=== PATIENT | female | born 2000 | race African-American/Black ===

== ENCOUNTER 2020-01-23 11:34 | Inpatient (IN) | payer MEDICAID ==
[~2020-01-23] VITALS: Ht 165.1 cm; Wt 57.0 kg
[2020-01-23 12:33] LABS: BASOPHILS 0.1 % (0-2); EOSINOPHILS 0.2 % (0-7); HEMATOCRIT 40.4 % (36.0-48.0); HEMOGLOBIN 12.4 g/dL (12-16); IMMATURE GRANULOCYTES 0.3 % (0-5); LYMPHOCYTES 5.5 % (15-50); MCH 28.5 pg (26.0-34.0); MCHC 30.7 g/dL (31.0-37.0); MCV 92.9 fL (80.0-100.0); MEAN PLATELET VOLUME 8.7 fL (7.4-10.4); MONOCYTES 5.5 % (2-11); NEUTROPHILS 88.4 % (40-80); PLATELET COUNT 267 10x3/uL (130-400); RBC 4.35 10x6/uL (4.00-5.40); RDW 17.3 % (11.5-14.5); WBC 13.6 10x3/uL (4.8-10.8)
[2020-01-23 13:08] LABS: ALKALINE PHOSPHATASE 51 U/L (30-120); ALT (SGPT) 12 U/L (10-68); BILIRUBIN - TOTAL 0.22 mg/dL (0.2-1.3); CALC OSMOLALITY 306 mosm/kg (275-300); CHLORIDE - SERUM 103 mmol/L (98-107); CKMB 7.7 U/L (0.0-3.6); CREATINE KINASE 171 UL (21-215); CREATININE - SERUM 7.8 mg/dL (0.6-1.3); GLUCOSE 92 mg/dL (74-106); POTASSIUM - SERUM 4.6 mmol/L (3.5-5.1); PRO BNP 24502 pg/mL (0-125); PROTEIN - SERUM 7.4 g/dL (6.4-8.2); SODIUM 138 mmol/L (136-145); UREA NITROGEN 98 mg/dL (7-18); eGFR NON AFRICAN AMERICAN 7 mL/min (90-120)
[2020-01-23 13:17] LABS: CALCIUM 6.6 mg/dL (8.5-10.1); TROPONIN-I 0.198 ng/mL (0.000-0.060)
[2020-01-23] MEDS ORDERED: MULTI-DAY VITAM1 TAB PO (13:18)
[2020-01-23] MEDS ORDERED: NORVASC5 MG PO (13:18)
[2020-01-23] MEDS ORDERED: OMEPRAZOLE20 M1 PO (13:18)
[2020-01-23] MEDS ORDERED: LISINOPRIL10 MG PO (13:18)
[2020-01-23] MEDS ORDERED: STERAPRED 5MG 125 MG PO (13:18)
--- NOTE | 2020-01-23 13:18 | NUR ---
CRITICAL LAB: CALCIUM 6.6 AND TROPONIN 0.198 NICOLETTE BELTRÁN NOTIFIED
[2020-01-23] MEDS ORDERED: TUMS X-STR300 MG PO (13:19)
[2020-01-23] MEDS ORDERED: KENALOG 0.1 % 115 GM TOPICAL (13:19)
[2020-01-23 13:44] VITALS: BP 147/98
--- NOTE | 2020-01-23 13:44 | NUR ---
ATTEMPTED IV X 3 BY [address] DEGROOT NOTIFIED AND REPORTS NO NEED FOR IV AT THIS TIME SEND PT TO DIALYSIS AND 3D ARTIST CAN DRAW BLOOD AND IF NEEDED USE DIALYSIS PORT.
--- NOTE | 2020-01-23 13:51 | NUR ---
TO DIALYSIS VIA , CONDITION STABLE
[2020-01-23 15:29] LABS: APTT 40.6 SECONDS (22.8-39.4); INR 2.15 (0.85-1.17); PROTIME 23.7 SECONDS (11.6-15.0)
[2020-01-23 16:22] VITALS: BP 146/100
--- NOTE | 2020-01-23 16:23 | NUR ---
PT RTND TO ER #T4. PER OSEAS, NUTRITIONIST [facility], PTS DIALYSIS CATHETER DID NOT WORK/UNABLE TO DIALYSIS. DR LIU IN DIALYSIS AND ORDERED CATHLON. CATHLON PLACED BY OSEAS @ APPROX 1500 AND IS STILL DWELLING.
--- NOTE | 2020-01-23 16:35 | NUR ---
DR KIMBERLEY OSEGUERA
--- NOTE | 2020-01-23 16:56 | NUR ---
SPOKE WITH DR CARBAJAL. REPORTS SHE ASSESSED PT IN DIALYSIS. ORDERED TO ATTEMPT IV VIA US AND IF ABLE TO GET IV ACCESS CHANGE LASIX FROM PO TO IV
--- NOTE | 2020-01-23 17:15 | NUR ---
US MACHINE UNAVAILABLE. LASIX ADMIN PO AT THIS TIME
[2020-01-23 18:00] VITALS: BP 137/90
[2020-01-23 18:17] LABS: COMPLEMENT C4 28.2 mg/dL (17.4-52.2)
--- NOTE | 2020-01-23 18:49 | NUR ---
IV PLACED VIA US RAC #20 GA, GOOD BLOOD RTN AND FLUSHES EASILY
[2020-01-23 19:25] VITALS: BP 138/86
--- NOTE | 2020-01-23 19:25 | NUR ---
REPORT TO JACINTA MOSHER
--- NOTE | 2020-01-23 19:34 | NUR ---
ADMIT TO CV#04, CONDITION STABLE
[2020-01-23 19:42] VITALS: BMI 24.1
--- NOTE | 2020-01-23 19:52 | NUR ---
REC'D PT FROM ER, PT ASSISTED INTO CVICU BED AND MONITORS HOOKED UP, PT AWAKE AND ALERT ON ROOM AIR, CALL LIGHT WITHIN REACH, SEE FLOW SHEET FOR FURTHER DETIALS. WILL CONTINUE TO OBSERVE.
[2020-01-23 22:00] VITALS: BP 138/94
[2020-01-23 23:00] VITALS: BP 134/109
[2020-01-24] VITALS (48 sets, daily range): BP systolic 71–159; BP diastolic 48–116; BMI 24.1
[2020-01-24 01:23] LABS: ALBUMIN 2.4 g/dL (3.4-5.0); BILIRUBIN - TOTAL 0.18 mg/dL (0.2-1.3); CARBON DIOXIDE 15.3 mmol/L (21.0-32.0); CREATININE - SERUM 7.8 mg/dL (0.6-1.3); PROTEIN - SERUM 6.2 g/dL (6.4-8.2)
[2020-01-24 01:25] LABS: ANION GAP 21.6 mmol/L (8-16); POTASSIUM - SERUM 3.9 mmol/L (3.5-5.1)
[2020-01-24 01:27] LABS: CALCIUM 6.7 mg/dL (8.5-10.1)
--- NOTE | 2020-01-24 05:00 | NUR ---
SHAKIR FROM [facility] IS HERE FOR INTUBATION. PATIENT IV INFILTRATED. UNABLE TO GET IV ACCESS AT THIS TIME.
--- NOTE | 2020-01-24 05:28 | NUR ---
PATIENT INTUBATED WITH 8.0 ETT AND TOLERATED WELL. COPIOUS AMOUNT OF FROTHY BLOOD TINGED SPUTUM NOTED IN ETT.
--- NOTE | 2020-01-24 14:13 | NUR ---
0700 REPORT RECIEVED AND CARE ASSUMED OF THE PATIENT.. SEE FLOW SHEET FOR SHIFT ASSESMENTR JEFFERY.. 0800 DR WALLER IN TO SEE PATIENT.. 0830 ABGS DRAWN 0900 ALL IV LINES WITH EXTENSIONS .. 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 1130 CONTINUE TO WEAN LEVOPHED.. DIALYSIS IN UNIT AND SETTING UP TO DIALIZE PATIENT 1145 CONTINUE TO WEAN 1230 DIALYSIS IN PROGRESS.. 1330 WITHOUT CHANGES
--- NOTE | 2020-01-24 14:23 | NUR ---
1415 LEVOPHED RESTARTED AT 5 MCG BP 71/48
[2020-01-24 15:00] LABS: HEMATOCRIT 40.7 % (36.0-48.0); HEMOGLOBIN 12.9 g/dL (12-16); MCH 28.7 pg (26.0-34.0); MCHC 31.7 g/dL (31.0-37.0); MCV 90.6 fL (80.0-100.0); PLATELET COUNT 288 10x3/uL (130-400); RBC 4.49 10x6/uL (4.00-5.40); RDW 17.2 % (11.5-14.5)
[2020-01-24 15:17] LABS: BILIRUBIN - TOTAL 0.48 mg/dL (0.2-1.3); MAGNESIUM - SERUM 1.9 mg/dL (1.8-2.4); PHOSPHOROUS 3.5 mg/dL (2.5-4.9)
[2020-01-24 15:23] LABS: ALBUMIN 3.3 g/dL (3.4-5.0); CALCIUM 8.7 mg/dL (8.5-10.1); CREATININE - SERUM 2.6 mg/dL (0.6-1.3); PROTEIN - SERUM 9.1 g/dL (6.4-8.2)
[2020-01-24 16:04] LABS: INR 1.16 (0.85-1.17); PROTIME 14.8 SECONDS (11.6-15.0)
[2020-01-24 16:24] LABS: EOSINOPHILS 6 % (0-7); LYMPHOCYTES 4 % (15-50); MONOCYTES 2 % (2-11); NEUTROPHILS 87 % (40-80); PLATELET ESTIMATE NORMAL
--- NOTE | 2020-01-24 18:28 | NUR ---
1500 CONTOINUE TO INCREASE LEVOPHED 1545 LEVO AT [address] NAVARRETE IN TO SEE PATIENT AND CVL PLACED INTO THE RIGHT SUBCLAVIAN BY HIM AT THIS TIME.. UNABLE TO [PLACE THE ORDERED A LINE 173 CXR DONE FOR LINE PLACEMENT [address] CALLED AND ETT TO BE PULLED BACK 3 CM PER HIM CONTINUE TO WEAN OFF LEVO 1830 LEVOPHED OFF
[2020-01-25] VITALS (51 sets, daily range): BP systolic 80–136; BP diastolic 51–98; Ht 165.1 cm; Wt 57.0 kg
--- NOTE | 2020-01-25 11:23 | NUR ---
Nutrition follow-up: Pt remains intubated, sedated NPO Labs reviewed Wt: 145# Will need nutrition support started within 24 hours Recommend Nepro @ goal rate of 40 ml/hr RDN following.
[2020-01-25 12:21] LABS: ANION GAP 19.7 mmol/L (8-16); CARBON DIOXIDE 24.5 mmol/L (21.0-32.0)
[2020-01-25 12:28] LABS: BASOPHILS 0.1 % (0-2); EOSINOPHILS 0.1 % (0-7); IMMATURE GRANULOCYTES 0.3 % (0-5); MCH 28.1 pg (26.0-34.0); MCHC 30.6 g/dL (31.0-37.0); MEAN PLATELET VOLUME 9.4 fL (7.4-10.4); MONOCYTES 5.4 % (2-11); NEUTROPHILS 89.1 % (40-80); PLATELET COUNT 237 10x3/uL (130-400); RDW 17.1 % (11.5-14.5)
[2020-01-25 12:33] LABS: HEMATOCRIT 30.1 % (36.0-48.0); HEMOGLOBIN 9.2 g/dL (12-16); RBC 3.27 10x6/uL (4.00-5.40); WBC 15.3 10x3/uL (4.8-10.8)
[2020-01-25 12:38] LABS: POTASSIUM - SERUM 4.2 mmol/L (3.5-5.1)
[2020-01-25 14:10] LABS: ACLA - IGG AB <9 GPL U/mL (0-14); ACLA - IGM AB <9 MPL U/mL (0-12); DOUBLE-STRANDED DNA ABS 1 IU/mL (0-9); SMITH ANTIBODY >8.0 AI (0.0-0.9)
[2020-01-25 15:11] LABS: ANA REFLEX - ANTICHROMATIN ABS >8.0 AI (0.0-0.9); ANA REFLEX - CENTROMERE B ABS <0.2 AI (0.0-0.9); ANA REFLEX - DBL STRANDED DNA 1 IU/mL (0-9); ANA REFLEX - DIRECT Positive (Negative); ANA REFLEX - JO-1 AB <0.2 AI (0.0-0.9); ANA REFLEX - RNP ANTIBODIES >8.0 AI (0.0-0.9); ANA REFLEX - SCL-70 0.2 AI (0.0-0.9); ANA REFLEX - SJOGRENS AB SSA 0.2 AI (0.0-0.9); ANA REFLEX - SJOGRENS AB SSB <0.2 AI (0.0-0.9); ANA REFLEX - SMITH AB >8.0 AI (0.0-0.9)
--- NOTE | 2020-01-25 16:01 | OP ---
PATIENT NAME: CLIVE BOATENG MEDICAL RECORD: [id number] :[birth year] LOCATION:.[facility] D.2312 ADMISSION DATE:01/24/20 SURGEON: MJ RAMÍREZ MD DATE OF OPERATION: 01/24/2020 PREOPERATIVE DIAGNOSES: 1. Ventilatory failure requiring mechanical ventilation. 2. End-stage renal disease, on hemodialysis. 3. Hypotension. POSTOPERATIVE DIAGNOSES: 1. Ventilatory failure requiring mechanical ventilation. 2. End-stage renal disease, on hemodialysis. 3. Hypotension. PROCEDURE: Right groin arterial line placement for hemodynamic monitoring. I was asked to place an arterial line. There had been prior attempts by another team. These attempts were at the right wrist. The entire procedure was performed in the presence of a nurse. A consent form had been signed. The left wrist was supinated. The volar surface of the left wrist was sterilely prepped and draped. Local anesthetic was used to infiltrate the skin and subcutaneous tissues overlying the radial artery. I was unable to percutaneously access the radial artery. Nathaniel's test had documented inadequate collateral flow via the ulnar artery. This approach was abandoned. Attention was then turned to placement of a groin line. The right groin was sterilely prepped and draped. Local anesthetic was used to infiltrate the skin and subcutaneous tissue to right groin. The right common femoral artery was percutaneously accessed in a retrograde fashion. A guidewire passed easily. A small skin mary was accomplished. An Angiocath type catheter was inserted over the wire. It was attached to a flush transducer tubing. The arterial line was sutured in place times 3. There was an excellent waveform on the monitor. A sterile dressing was applied. TRANSINT:[id number] Voice Confirmation ID: [id number] DOCUMENT ID: [id number] MJ RAMÍREZ MD at 1601 CC: [id number] DICTATION DATE: 01/25/20 0021 RELAY WORKER: 01/25/20 0310 ADM IN [place] [id number] [place] [address]
[2020-01-26] VITALS (16 sets, daily range): BP systolic 107–139; BP diastolic 72–99
--- NOTE | 2020-01-26 09:08 | NUR ---
UPDATE GIVEN TO FAMILY OVER PHONE, PASSWORD OBTAINED
[2020-01-26 09:12] LABS: HEP B CORE AB TOTAL Negative (Negative); HEPATITIS C ANTIBODY 0.1 S/CO RAT (0.0-0.9)
[2020-01-26 09:28] LABS: ANION GAP 20.9 mmol/L (8-16); CARBON DIOXIDE 23.7 mmol/L (21.0-32.0); CREATININE - SERUM 8.7 mg/dL (0.6-1.3); POTASSIUM - SERUM 4.6 mmol/L (3.5-5.1)
[2020-01-26 09:30] LABS: BASOPHILS 0.1 % (0-2); EOSINOPHILS 0.4 % (0-7); HEMATOCRIT 32.5 % (36.0-48.0); HEMOGLOBIN 9.9 g/dL (12-16); IMMATURE GRANULOCYTES 0.3 % (0-5); LYMPHOCYTES 5.6 % (15-50); MCH 27.8 pg (26.0-34.0); MCHC 30.5 g/dL (31.0-37.0); MCV 91.3 fL (80.0-100.0); MEAN PLATELET VOLUME 9.3 fL (7.4-10.4); MONOCYTES 3.2 % (2-11); NEUTROPHILS 90.4 % (40-80); PLATELET COUNT 243 10x3/uL (130-400); RBC 3.56 10x6/uL (4.00-5.40); RDW 16.7 % (11.5-14.5); WBC 15.7 10x3/uL (4.8-10.8)
--- NOTE | 2020-01-26 13:15 | NUR ---
TO OR VIA BED.
--- NOTE | 2020-01-26 14:50 | NUR ---
DR MOTTA CALLED ORDERS RECIEVE TO CONSULT DR CLAROS DUE TO ECHO.
--- NOTE | 2020-01-26 14:52 | NUR ---
CONSULT CALLED TO JOHAN WILL.
--- NOTE | 2020-01-26 16:10 | NUR ---
BACK FROM OR. RR NURSE AT BEDSIDE.
[2020-01-26 17:15] LABS: HCG URINE NEGATIVE (NEGATIVE)
--- NOTE | 2020-01-26 20:30 | NUR ---
ASSESSMENT PER FLOW SHEET, VS CONTINUE, RIGHT SUBCLAVIAN INTACT WITH NO REDNESS OR EDEMA INFUSING NS PUMP AT KVO, DRESSING CDI, LEFT HEMOSPLIT INTACT WITH NO REDNESS OR EDMEA, DRESSING CDI WITH NO DRAINAGE NOTED, RIGHT GROIN DRESSING CDI WITH NO DRAINAGE NOTED, POC DISCUSSED WITH PT REGARDING REMOVAL OF BUSTOS, PT VERBALIZES UNDERSTANDING, PT REQUESTS BATH, INFORMED PT THAT I WILL BE BACK SHORTLY TO GIVE BED BATH, PT VERBALIZES UNDERSTANDING, DENIES NEEDS AT THIS TIME, BED IN LOW POSITION, SIDE RAILS X 2, CALL LIGHT IN REACH
--- NOTE | 2020-01-26 21:59 | NUR ---
MEDS ADM PER ANOTHER NURSE AT THIS TIME, SEE EMAR
--- NOTE | 2020-01-26 22:14 | NUR ---
med given per mar.
--- NOTE | 2020-01-26 22:15 | NUR ---
PT REPORTS THAT SHE STARTED HER PERIOD, COMPLETE HCG BATH GIVEN, BEDDING CHANGED, CLEAN GOWN, ASSISTED PT WITH MARY PAD AND PANTIES, PT STATES "THAT FEELS SO MUCH BETTER", PT DENIES FURTHER NEEDS
--- NOTE | 2020-01-26 23:00 | NUR ---
SHIFT REASSESSMENT DONE, TEMP OBTAINED
--- NOTE | 2020-01-27 00:35 | NUR ---
PT AWAKE, PT REQUESTED AND SERVED CASSANDRA CRACKERS AND MILK, DENIES FURHTER NEEDS OR PAIN AT THIS TIME
--- NOTE | 2020-01-27 01:13 | NUR ---
IV BEEPING, SHOWING "PATIENT ON SIDE", IV LINE BACK UNDERNEATH PT, LINE REMOVED FROM BEHIND PT, IV INFUSING WITH NO DIFFICULTY AT THIS TIME, PT DENIES NEEDS OR PAIN
--- NOTE | 2020-01-27 03:00 | NUR ---
ASSESSMENT PER FLOW SHEET, OBTAINED TEMP, PT REQUESTED AND SERVED FRESH H20, DENIES FURTHER NEEDS
[2020-01-27 03:07] LABS: PROTEIN S - FREE 60 % (57-157); PROTEIN S - FUNCTIONAL 85 % (63-140); PROTEIN S - TOTAL 83 % (60-150)
[2020-01-27 04:00] VITALS: BP 117/94
--- NOTE | 2020-01-27 04:32 | NUR ---
PT RESTING WITH EYES CLOSED, RESP QUIET, NO DISTRESS NOTED, LEFT UNDISTURBED AT THIS TIME
[2020-01-27 05:00] VITALS: BP 114/97
[2020-01-27 06:00] VITALS: BP 128/98
--- NOTE | 2020-01-27 06:12 | NUR ---
PT RESTING WITH EYES CLOSED, AROUSES TO SOFT VERBAL STIMULATIO, ADM 0600 MED PO PER MD ORDERS, SEE EMAR, WITH FRESH H20, WEIGHT OBTAINED VIA BEDSCALE, PT DENIES NEEDS OR PAIN AT THIS TIME
--- NOTE | 2020-01-27 07:00 | NUR ---
ASSESSMENT PER FLOWSHEET. PT IS TO DIALYZE TODAY.
[2020-01-27 09:12] LABS: ANTITHROMBIN III ACTIVITY 95 % (75-135); PLASMINOGEN ACTIVITY 72 % (70-150)
--- NOTE | 2020-01-27 10:58 | NUR ---
Nutrition follow-up: Pt extubated and diet advanced to renal ADA PO intake poor at this time Labs reviewed WT: 124# Will provide food choices with selective menus and honor food preferences. Will offer Nepro nutritional supplement RDN following.
[2020-01-27 12:11] LABS: PROTEIN C - ANTIGEN 100 % (60-150); PROTEIN C - FUNCTIONAL 190 % (73-180)
--- NOTE | 2020-01-27 14:00 | NUR ---
HEMODIALYSIS CONTINUED.
--- NOTE | 2020-01-27 17:00 | NUR ---
REPORT CALLED TO DEMETRI.
--- NOTE | 2020-01-27 17:27 | NUR ---
TO MED 2 VIA .
[2020-01-27 18:30] LABS: ANCA - ANTIMYELOPEROXIDASE <9.0 U/mL (0.0-9.0); ANCA - ANTIPROTEINASE 3 <3.5 U/mL (0.0-3.5); ANCA - ATYPICAL <1:20 titer (Neg:<1:20); ANCA - CYTOPLASMIC <1:20 titer (Neg:<1:20); ANCA - PERINUCLEAR <1:20 titer (Neg:<1:20)
--- NOTE | 2020-01-27 19:30 | NUR ---
PT IN BED, AAO X 3, RESP EVEN AND UNLABORED. NO DISTRESS NOTED, CL IN REACH, SR UP X 2.
[2020-01-27 20:00] VITALS: BP 120/87
[2020-01-28] VITALS: BP 135/84
[2020-01-28 04:00] VITALS: BP 138/92
[2020-01-28 06:43] LABS: HEMATOCRIT 32.2 % (36.0-48.0); HEMOGLOBIN 9.9 g/dL (12-16); LYMPHOCYTES 11.1 % (15-50); MCH 28.4 pg (26.0-34.0); MCHC 30.7 g/dL (31.0-37.0); MCV 92.3 fL (80.0-100.0); MEAN PLATELET VOLUME 9.8 fL (7.4-10.4); NEUTROPHILS 78.8 % (40-80); PLATELET COUNT 185 10x3/uL (130-400); RBC 3.49 10x6/uL (4.00-5.40); RDW 15.3 % (11.5-14.5); WBC 9.4 10x3/uL (4.8-10.8)
[2020-01-28 06:56] LABS: ANION GAP 17.7 mmol/L (8-16); CALCIUM 8.1 mg/dL (8.5-10.1); CARBON DIOXIDE 23.8 mmol/L (21.0-32.0); CREATININE - SERUM 8.4 mg/dL (0.6-1.3); POTASSIUM - SERUM 4.5 mmol/L (3.5-5.1)
[2020-01-28 07:11] LABS: ALBUMIN 2.6 g/dL (3.4-5.0); BILIRUBIN - TOTAL 0.31 mg/dL (0.2-1.3); PROTEIN - SERUM 7.3 g/dL (6.4-8.2)
--- NOTE | 2020-01-28 07:15 | NUR ---
RECEIVED REPORT, ASSUMED CARE, A&OX3 PATIENT SENT TO DIALYSIS, WILL CONTINUE POC
[2020-01-28] MEDS ORDERED: COREG6.25 MG PO (09:55)
[2020-01-28] MEDS ORDERED: PREDNISONE5 MG PO (10:21)
--- NOTE | 2020-01-28 12:03 | NUR ---
RT CHEST CVL, REMOVED WITH CATHETER TIP INTACT. APPLIED PRESSURE FOR 5MIN AND INSTRUCTED PT TO LAY FLAT FOR 15MIN. NURSE WILL REASSESS SITE IN 15MIN.
--- NOTE | 2020-01-28 12:56 | NUR ---
DISCHARGED PT IN WC WITH HER MOM, DC INSTRUCTIONS GIVEN, QUESTIONS ANSWERED, CENTRAL LINE REMOVED BY JULIO RN TIP INTACT
--- NOTE | 2020-01-29 16:13 | MORECARE ---
CASE MANAGEMENT DISCHARGE SUMMARY PATIENT: CLIVE BOATENG UNIT: [id number] ADM DATE: 01/24/20 AGE: 19 : [birth year] SEX: F ROOM/BED: D.2140 AUTHOR: PAM GARCIA PHYSICIAN: REFERRING PHYSICIAN: SUDHIR CARBAJAL DO DATE OF SERVICE: 01/29/20 Discharge Plan Patient Name: CLIVE BOATENG [facility] [facility] 2000 Planned Disposition: Home Anticipated Discharge Date: 01/28/20 Discharge Date: 01/28/2020 Expected LOS: 4 Initial Reviewer: [email or web address] Initial Review Date: 01/28/2020 Generated: 01/29/20 5:12 pm DCPIA - Discharge Planning Initial Assessment Updated by [email or web address]: Vivi Lou on 01/29/20 4:12 pm * Is the patient Alert and Oriented? Yes * How many steps to enter\exit or inside your home? * PCP [facility] * [facility] * Preadmission Environment Home with Family * ADLs Independent * Equipment None * List name and contact numbers for known caregivers / representatives who currently or will assist patient after discharge: BART BOATENG - [phone] * Verbal permission to speak to the caregivers and representatives has been obtained from the patient. Yes * Community resources currently utilized None * Please name any agencies selected above. [facility] IN [place] * Additional services required to return to the preadmission environment? No * Can the patient safely return to the preadmission environment? Yes * Has this patient been hospitalized within the prior 30 days at any hospital? Yes Patient Name: CLIVE BOATENG Page [id number] at 1613 All edits/amendments must be made on the electronic document DICTATION DATE: 01/29/20 1613 MACHINIST FIRST CLASS: CHUCK 01/29/20 161 RPT#: [id number] DC DATE:01/28/20 STATUS: DIS IN [facility] [address] [place] [address] END OF REPORT
--- NOTE | 2020-01-29 16:21 | MORECARE ---
CASE MANAGEMENT DISCHARGE SUMMARY PATIENT: CLIVE BOATENG UNIT: [id number] ADM DATE: 01/24/20 AGE: 19 : [birth year] SEX: F ROOM/BED: D.6584 AUTHOR: JOSE,DOC PHYSICIAN: REFERRING PHYSICIAN: SUDHIR CARBAJAL DO DATE OF SERVICE: 01/29/20 Discharge Plan Patient Name: CLIVE BOATENG [facility]:[place] : 2000 Planned Disposition: Home Anticipated Discharge Date: 01/28/20 Discharge Date: 01/28/2020 Expected LOS: 4 Initial Reviewer: [email or web address] Initial Review Date: 01/28/2020 Generated: 01/29/20 5:20 pm Comments DCP- Discharge Planning Updated by [email or web address]: Vivi Lou on 01/29/20 3:[address] Patient Name: CLIVE BOATENG Admission Status: ER Accout number: [id number] Admission Date: 01-24-2020 : 2000 Admission Diagnosis:ACUTE RESPIRATORY FAILURE WITH HYPOXIA Attending: ELIZABETH Current LOS: 4 Anticipated DC Date: 01-28-2020 Planned Disposition: Home [place] Insurance: [place] [employer] [facility] Discharge Planning Comments: CM met with patient to complete initial dc planning assessment. CM educated patient on the CM role and verbal consent given by patient to complete assessment. Patient lives at home with family. Patient is independent. At discharge patient plans to return home and feels this is a safe discharge. CM discussed availability of home health, rehab services, and medical equipment. Patient will have family to transport home. Patient has HD tths in [place]. Patient denied known discharge needs at this time. CM will continue to follow and will assist as needed with dc plans/needs. Restaurant Kitchen And Service Manager: Vivi Lou DCPIA - Discharge Planning Initial Assessment Updated by [email or web address]: Vivi Lou on 01/29/20 4:12 pm * Is the patient Alert and Oriented? Yes * How many steps to enter\exit or inside your home? * PCP [facility] MON[facility] * [facility] * Preadmission Environment Home with Family * ADLs Independent * Equipment None * List name and contact numbers for known caregivers / representatives who currently or will assist patient after discharge: BART BOATENG - [phone] * Verbal permission to speak to the caregivers and representatives has been obtained from the patient. Yes * Community resources currently utilized None * Please name any agencies selected above. HD [facility] IN [place] * Additional services required to return to the preadmission environment? No * Can the patient safely return to the preadmission environment? Yes * Has this patient been hospitalized within the prior 30 days at any hospital? Yes Last DP export: 01/29/20 3:13 p Patient Name: CLIVE BOATENG Page [phone] at 1621 All edits/amendments must be made on the electronic document DICTATION DATE: 01/29/201619 CHIEF DIGITAL OFFICER: CHUCK 01/29/201619 RPT#: [id number] DC DATE:01/28/20 STATUS: DIS IN [facility] [address] [place] [address] END OF REPORT
--- NOTE | 2020-01-31 20:50 | OP ---
PATIENT NAME: CLIVE BOATENG MEDICAL RECORD: [id number] :[birth year] LOCATION:D.M2 D.2140 ADMISSION DATE:01/24/20 SURGEON: MACIE DE SANTIAGO MD DATE OF OPERATION: 01/26/2020 REFERRED BY: Celena Carbajal DO PREOPERATIVE DIAGNOSES: End-stage renal disease, dependence on renal dialysis and malfunctioning tunneled dialysis catheter in the left internal jugular vein. POSTOPERATIVE DIAGNOSES: End-stage renal disease, dependence on renal dialysis and malfunctioning tunneled dialysis catheter in the left internal jugular vein. OPERATION PERFORMED: Tunneled dialysis catheter exchange under fluoroscopy. SURGEON: Macie De Santiago MD ANESTHESIA: General by Dr. Jimenez with LMA. PREOPERATIVE NOTE: This young woman with recently diagnosed advanced lupus, is on dialysis with a left internal jugular dialysis catheter, has failed to function well and was actually just changed by Dr. Guerrero about 4-5 days ago at [facility]. That catheter is now not working well. She is in ICU, having been admitted with pulmonary edema and respiratory failure right after having had her catheter exchange. She at present has a triple lumen IV catheter in her right subclavian vein and has a femoral arterial line on the right. As it appears that she is no longer an acute respiratory failure, I believe that the arterial line can be removed soon and the triple lumen catheter should be removed as well. She has had significantly increased risk for long-term subclavian vein stenosis or stricture having a subclavian IV for any significant period of time. May also be a dialysis catheter from the right will function better. She is brought to the operating room with plans to do that exchange and possibly remove the catheter and arterial line. DESCRIPTION OF PROCEDURE: Under anesthesia in supine position, the patient was prepped and draped in sterile manner. Under fluoroscopy, I advanced a guidewire through the venous lumen of her existing tunneled dialysis catheter and I was able to manipulate the catheter down in the inferior vena cava. I then removed the existing catheter over the wire and placed a new 19-cm catheter over the guidewire under fluoroscopy. This required a bit of repositioning, turning and repositioning, but finally with the venous line in the lateral aspect of the atrium, at about the mid atrial level, both lumens of the catheter aspirate freely and they were then flushed with saline and then heparin locked with 1000 unit per cc heparin. The catheter was capped. It was sutured to the skin near the entry site with 2-0 Prolene and a standard dressing including a chlorhexidine Biopatch was applied. The subclavian triple-lumen catheter on the right and the femoral line on the right were not removed, but instead they were redressed, because as the patient was under anesthesia she had severe respiratory obstructive type findings with retractions and breathing with accessory muscles as would the patient breathing against bronchospasm or upper airway obstruction. I believe it will be better if we wait and let renal and pulmonology have these lines discontinued probably tomorrow. The patient was awakened and the respiratory distress resolved. She was OPERATIVE REPORT [id number] CLIVE BOATENG subsequently taken back to the ICU. There was very little blood loss, perhaps 5 cc during the procedure. Sponges, instruments, and needles were accounted for. No drain was used and no surgical specimen was submitted for histopathology. TRANSINT:[id number] Voice Confirmation ID: [id number] DOCUMENT ID: [id number] MACIE DE SANTIAGO MD at 2050 CC: CELENA CARBAJAL DO [id number] DICTATION DATE: 01/26/20 1700 CONTINUOUS PILLOWCASE CUTTER: 01/27/20 0009 DIS IN 01/28/20 [facility] [address] [place] [address]
[2020-02-01 05:10] LABS: LUPUS - INTERPRETATION Comment: (()); LUPUS - THROMBIN TIME 19.9 sec (0.0-23.0); LUPUS - dRVVT CONFIRMATION 1.1 ratio (0.8-1.2)
[2020-02-01 17:09] LABS: HEXAGONAL PHASE PHOS 0 sec (0-11); LUPUS - THROMBIN NEUT 34.7 sec (0.0-23.0); LUPUS - THROMBIN TIME 33.2 sec (0.0-23.0); LUPUS - THROMBIN TIME MIX 28.3 sec (0.0-23.0); LUPUS - dRVVT 73.3 sec (0.0-47.0); LUPUS - dRVVT CONFIRMATION 1.1 ratio (0.8-1.2); PTT-LA 65.2 sec (0.0-51.9); PTT-LA MIX 54.8 sec (0.0-48.9)
== END 2020-01-28 12:58 | disposition home or self-care (01) | DRG 208 ==
LOC: D.ER 11:34 → D.ICU 16:41 → OBSVTIME 16:41 → D.CVICU 16:41 → D.ICU 16:41 → D.M2 01-24 08:01
PROVIDERS: Anesthesiology; Family Medicine; Internal Medicine Hematology & Oncology; Internal Medicine Pulmonary Disease; ADMIT Internal Medicine; ATTEND Internal Medicine
PROC: 5A1945Z Respiratory Ventilation, 24-96 Consecutive Hours (ICD-10-PCS; principal; 2020-01-24)
PROC: 0BH17EZ Insertion of Endotracheal Airway into Trachea, Via Natural or Artificial Opening (ICD-10-PCS; 2020-01-24)
PROC: 04HY32Z Insertion of Monitoring Device into Lower Artery, Percutaneous Approach (ICD-10-PCS; 2020-01-24)
PROC: 4A133B1 Monitoring of Arterial Pressure, Peripheral, Percutaneous Approach (ICD-10-PCS; 2020-01-24)
PROC: 4A133J1 Monitoring of Arterial Pulse, Peripheral, Percutaneous Approach (ICD-10-PCS; 2020-01-24)
DX: J96.01 Acute respiratory failure with hypoxia (principal); N18.6 End stage renal disease; J18.9 Pneumonia, unspecified organism; I50.21 Acute systolic (congestive) heart failure; I13.2 Hypertensive heart and chronic kidney disease with heart failure and with stage 5 chronic kidney disease, or end stage renal disease; E87.2 Acidosis; T82.41XA Breakdown (mechanical) of vascular dialysis catheter, initial encounter; Z99.2 Dependence on renal dialysis; K21.9 Gastro-esophageal reflux disease without esophagitis; M32.14 Glomerular disease in systemic lupus erythematosus; E21.3 Hyperparathyroidism, unspecified; E87.6 Hypokalemia; D64.9 Anemia, unspecified; R00.0 Tachycardia, unspecified